=== PATIENT | female | born 1975 | race African-American/Black ===

== ENCOUNTER 2024-07-13 07:34 | Day surgery (SDC) | payer OTHER ==
[2024-07-10 16:10] VITALS: BMI 38.7
[2024-07-13] MEDS ORDERED: LIDOCAINE HCL/PF 2% SDV 5ML VIAL ONE (08:11)
[2024-07-13] MEDS ORDERED: PROPOFOL 80 ML ONE (08:12)
[2024-07-13 08:46] VITALS: PULSE 63; RESP 18; TEMP 97
[2024-07-13 09:17] VITALS: BP 110/64
== END 2024-07-13 09:10 | disposition home or self-care (01) ==
LOC: FASU-ENDO 07:34
PROVIDERS: ATTEND Internal Medicine Gastroenterology
PROC: 0DJD8ZZ Inspection of Lower Intestinal Tract, Via Natural or Artificial Opening Endoscopic (ICD-10-PCS; principal; 2024-07-13 08:19)
DX: Z12.11 Encounter for screening for malignant neoplasm of colon (principal)
CPT/HCPCS: 81025